=== PATIENT | male | born 1965 | race Caucasian/White ===

== ENCOUNTER 2018-05-03 10:15 | Emergency (ER) | payer BC ==
[~2018-05-03 10:15] MED LIST: Famotidine 20 MG/2 ML SDV ONE; diphenhydrAMINE 50 MG/ML SDV ONE; methylPREDNISolone Sodium Succinate 125 MG/2 ML SDV ONE
[2018-05-03] MEDS ORDERED: predniSONE 20 MG Tab PO ONE (10:16)
[2018-05-03] MEDS ORDERED: diphenhydrAMINE 50 MG/ML SDV IVPUSH ONE (10:21)
[2018-05-03] MEDS ORDERED: methylPREDNISolone Sodium Succinate 125 MG/2 ML SDV IVPUSH ONE (10:22)
[2018-05-03] MEDS ORDERED: Famotidine 20 MG/2 ML SDV IVPUSH ONE (10:23)
[2018-05-03] MEDS ORDERED: EPINEPHrine 1 MG/ML SDV IM ONE (11:04)
[2018-05-03 11:12] VITALS: BP 158/96
[2018-05-03] MEDS ORDERED: Sodium Chloride 0.9% 1,000 ML IV ONE (11:34)
--- NOTE | 2018-05-03 12:25 | EDM.PDOC ---
ED HPI GENERAL MEDICAL PROBLEM - General Chief Complaint: Allergic Reaction Stated Complaint: allergic reaction Time Seen by Provider: 05/03/18 10:15 Source of Information: Reports: Patient History Limitations: Reports: No Limitations - History of Present Illness INITIAL COMMENTS - FREE TEXT/NARRATIVE: This patient is a 52 year old male that presents to the clinic. I saw him quickly and than moved to the ER emergently. I then evaluated him once he was in the ER again. The patient reports that about 30 minutes prior to arrival he started having some sneezing, facial swelling. He reports then he arrived now his throat feels tight. The patient reports his speech is mumbled due to his tongue swelling.The patient reports his face feels red and warm. The patient report she just started several new medications this week for BP and cholesterol. Patient was started on Lisinopril. Onset: Sudden Onset Date: 05/03/18 Duration: Minutes: (30), Getting Worse Location: Reports: Face Severity: Moderate Improves with: Reports: None Worsens with: Reports: None Associated Symptoms: Denies: Confusion, Chest Pain, Cough, cough w sputum, Diaphoresis, Fever/Chills, Headaches, Loss of Appetite, Malaise, Nausea/Vomiting , Rash, Seizure, Shortness of Breath, Syncope, Weakness - Related Data Allergies Allergy/AdvReac Type Severity Reaction Status Date / Time CAIT Inhibitors Allergy Edema Verified 05/03/18 14:32 Home Meds: Home Meds ALPRAZolam [Xanax] 1 tab PO Q8H PRN 07/12/15 [History] Metoprolol Succinate 50 mg PO DAILY 05/03/18 [History] Simvastatin [Zocor] 40 mg PO DAILY 05/03/18 [History] buPROPion [Wellbutrin SR] 150 mg PO DAILY 05/03/18 [History] Past Medical History Cardiovascular History: Reports: High Cholesterol, Hypertension Psychiatric History: Reports: Anxiety Social & Family History - Tobacco Use Smoking Status *Q: Current Every Day Smoker Years of Tobacco use: 30 Packs/Tins Daily: 1 ED ROS ALLERGIC REACTION - Review of Systems Review Of Systems: See Below Constitutional: Reports: No Symptoms HEENT: Reports: Throat Swelling, Other (tongue swelling, facial swelling. lips swelling. ) Respiratory: Reports: No Symptoms. Denies: Shortness of Breath Cardiovascular: Reports: No Symptoms Endocrine: Reports: No Symptoms GI/Abdominal: Reports: No Symptoms : Reports: No Symptoms Musculoskeletal: Reports: No Symptoms Skin: Reports: No Symptoms Neurological: Reports: No Symptoms Psychiatric: Reports: No Symptoms Hematologic/Lymphatic: Reports: No Symptoms ED EXAM GENERAL NO PERIP PULSE - Physical Exam Exam: See Below Exam Limited By: No Limitations General Appearance: Alert, WD/WN, Anxious, Moderate Distress Eye Exam: Bilateral Eye: EOMI, Normal Inspection, PERRL Ears: Normal External Exam, Normal Canal, Hearing Grossly Normal, Normal TMs Nose: Normal Inspection, Normal Mucosa, No Blood Throat/Mouth: Inflammation (swelling of the face, lips upper and lower, tongue. Airway is patent at this time. ). No: Dysphagia, Perioral Cyanosis Head: Atraumatic, Normocephalic Neck: Normal Inspection, Supple, Non-Tender, Full Range of Motion Respiratory/Chest: No Respiratory Distress, Lungs Clear, Normal Breath Sounds, No Accessory Muscle Use, Chest Non-Tender Cardiovascular: Normal Peripheral Pulses, Regular Rate, Rhythm, No Edema, No Gallop, No JVD, No Murmur, No Rub GI/Abdominal: Normal Bowel Sounds, Soft, Non-Tender, No Organomegaly, No Distention, No Abnormal Bruit, No Mass, Pelvis Stable (Male) Exam: Deferred Rectal (Males) Exam: Deferred Back Exam: Normal Inspection, Full Range of Motion Extremities: Normal Inspection, Normal Range of Motion, Non-Tender, No Pedal Edema, Normal Capillary Refill Neurological: Alert, Oriented, Normal Cognition, Normal Gait, No Motor/Sensory Deficits Psychiatric: Normal Affect, Normal Mood Skin Exam: Warm, Dry, Intact, Normal Color, No Rash Lymphatic: No Adenopathy Course - Vital Signs Last Recorded V/S: Last Vital Signs Temp 97.2 F 05/03/18 11:05 Pulse 80 05/03/18 11:05 Resp 20 05/03/18 11:05 BP 158/96 H 05/03/18 11:05 Pulse Ox 96 05/03/18 11:05 - Orders/Labs/Meds Meds: Medications Discontinued Medications Generic Name Dose Route Start Last Admin Trade Name Freq PRN Reason Stop Dose Admin Diphenhydramine HCl Confirm 05/03/18 10:08 05/03/18 10:36 Benadryl Administered 05/03/18 10:09 Not Given Dose 50 mg .ROUTE .STK-MED ONE Diphenhydramine HCl 50 mg 05/03/18 10:21 05/03/18 10:21 Benadryl IVPUSH 05/03/18 10:22 50 mg ONETIME ONE Administration Epinephrine HCl 0.3 mg 05/03/18 11:04 05/03/18 11:04 Adrenalin IM 05/03/18 11:05 0.3 mg ONETIME ONE Administration Famotidine Confirm 05/03/18 10:08 05/03/18 10:36 Pepcid Administered 05/03/18 10:09 Not Given Dose 20 mg .ROUTE .STK-MED ONE Famotidine 20 mg 05/03/18 10:23 05/03/18 10:22 Pepcid IVPUSH 05/03/18 10:24 20 mg ONETIME ONE Administration Sodium Chloride 1,000 mls @ 500 mls/hr 05/03/18 11:34 05/03/18 11:48 Normal Saline IV 05/03/18 13:33 500 mls/hr .BOLUS ONE Administration Methylprednisolone Sodium Succinate Confirm 05/03/18 10:08 05/03/18 10:36 Solu-Medrol Administered 05/03/18 10:09 Not Given Dose 125 mg .ROUTE .STK-MED ONE Methylprednisolone Sodium Succinate 125 mg 05/03/18 10:22 05/03/18 10:23 Solu-Medrol IVPUSH 05/03/18 10:23 125 mg ONETIME ONE Administration Prednisone 3 packet 05/03/18 14:32 Take Home: Prednisone 20 Mg, 2 Tab Pack PO 05/03/18 14:33 ONETIME ONE - Re-Assessments/Exams Free Text/Narrative Re-Assessment/Exam: 05/03/18 12:27 Patient was given Benadryl, Solumedrol, Pepcid all IV. Given Epi SQ. Patient reports that he is felling better as far as the swelling has mildly imrpoved, and has stopped swelling. He reports he does not feel like his airway is closing. Patient reports is able to converse in full and complete sentences. Patient does have garbled/mumbled speech due to tong swelling. Airway is patent and intact. Lungs are clear. Will continue to monitor the patient in the ER for 4 hours post epi being given. 05/03/18 14:34 I want to send the patient home with an EPI Pen, however [facility] does not have this medication and the pharmacy locally is now closed. Educated to call 911 for allergic or airway complaints. He voices back understanding and wants to go home. The patient tongue is no longer swollen. Departure - Departure Time of Disposition: 14:21 Disposition: Home, Self-Care 01 Condition: Fair Clinical Impression: Angio-edema Qualifiers: Encounter type: initial encounter Qualified Code(s): T78.3XXA - Angioneurotic edema, initial encounter - Discharge Information *PRESCRIPTION DRUG MONITORING PROGRAM REVIEWED*: No *COPY OF PRESCRIPTION DRUG MONITORING REPORT IN PATIENT TERRENCE: No Instructions: Angioedema, [id number] Referrals: Cem Jacobson, MARGARETC [Primary Care Provider] - Forms: ED Department Discharge Additional Instructions: Followup with your primary care provider on Saturday Return to the ER for worsening of condition or any emergent concerns such as airway closing CALL 911 FOR AIRWAY PROBLEMS OR ANY OTHER CONCERNS Prednisone 20mg 1 pill twice a day for 3 days #6 no refill take home May also take Benadryl over the counter every 6 hours as needed for allergic reaction Keep in mind: Angioedema may not improve with medications being taken, but only with days time. STOP TAKING LISINOPRIL
[2018-05-03] MEDS ORDERED: Take Home: predniSONE 20 MG, 2 Tab Pack PO ONE (14:32)
== END 2018-05-03 14:40 | disposition home or self-care (01) ==
LOC: CC.ED 10:15
DX: T78.3XXA Angioneurotic edema, initial encounter (principal); I10 Essential (primary) hypertension; F41.9 Anxiety disorder, unspecified; F17.210 Nicotine dependence, cigarettes, uncomplicated; Z79.899 Other long term (current) drug therapy; Z88.8 Allergy status to other drugs, medicaments and biological substances
CPT/HCPCS: 96361; 96374; 96375; 99282; A9270; J0171; J1200; J2930; J3490; J7030

== ENCOUNTER → 2020-09-30 | Day surgery (SDC) | payer BC ==
[~2020-09-30] MED LIST changes: -Famotidine 20 MG/2 ML SDV ONE; +Midazolam 1 MG/ML 2 ML SDV ONE; +Propofol 200 MG/20 ML SDV ONE; -diphenhydrAMINE 50 MG/ML SDV ONE; +fentaNYL 100 MCG/2 ML SDV ONE; -methylPREDNISolone Sodium Succinate 125 MG/2 ML SDV ONE
[2020-09-30] MEDS: Lactated Ringers 1,000 ML IV SCH (08:50)
[2020-09-30 10:21] VITALS: BP 117/73; PULSE 58
--- NOTE | 2020-09-30 13:51 | OR ---
DATE OF OPERATION: 09/30/2020 PREOPERATIVE DIAGNOSIS: HISTORY OF POLYPS. POSTOPERATIVE DIAGNOSIS: HISTORY OF POLYPS. SURGEON: Jeramie Rodrigues MD PROCEDURE: FULL-LENGTH COLONOSCOPY WITH FORCEPS POLYP REMOVAL X3. ANESTHESIA: MAC. COMPLICATIONS: None. SPECIMEN: Three small sessile polyps, rectosigmoid junction, likely hyperplastic. FINDINGS: 1. Full-length colonoscopy. 2. Moderate sigmoid diverticulosis. 3. Three small polyps, rectosigmoid junction, all likely hyperplastic. RECOMMENDATIONS: Followup colonoscopy in 5 years. INDICATIONS: The patient has prior colonoscopy with polyps removed. He is due for a routine followup. DESCRIPTION OF PROCEDURE: The patient was prepped and draped, placed in the left lateral decubitus position. A lubricated Olympus colonoscope was inserted and easily advanced to the cecum. Direct visualization of the ileocecal valve and appendiceal orifice was accomplished. The bowel prep was adequate. There was scattered stool throughout the colon, most could be suctioned, some not. Certainly, there were areas where smaller polyps may have been missed. Upon withdrawal, the cecum, ascending and transverse colons were completely benign. The patient had scattered diverticular disease throughout most of the left colon. This was more significant as expected in the sigmoid and rectosigmoid region, mild to moderate in severity. In the rectosigmoid junction, the patient had 3 small flat sessile polyps appearing to be hyperplastic by visualization, all removed with a forceps without any problem. The rectal vault was benign. Retroflexion showed some perianal hemorrhoid disease, otherwise benign. Air was then suctioned. The scope was removed without complication. RICHARD/CHIKI /[id number]
== END ==
LOC: CC.SDS 08:17
PROVIDERS: ATTEND Family Medicine
DX: Z12.11 Encounter for screening for malignant neoplasm of colon (principal); K63.5 Polyp of colon; K62.1 Rectal polyp; K57.30 Diverticulosis of large intestine without perforation or abscess without bleeding; K64.8 Other hemorrhoids; Z86.010 Personal history of colon polyps; K63.89 Other specified diseases of intestine; F17.210 Nicotine dependence, cigarettes, uncomplicated; J44.9 Chronic obstructive pulmonary disease, unspecified; I25.10 Atherosclerotic heart disease of native coronary artery without angina pectoris; I10 Essential (primary) hypertension; E78.5 Hyperlipidemia, unspecified; Z88.8 Allergy status to other drugs, medicaments and biological substances; Z79.82 Long term (current) use of aspirin; Z79.899 Other long term (current) drug therapy; Z95.1 Presence of aortocoronary bypass graft
CPT/HCPCS: 45380; J7120; 00812; J2250; J2704; J3010

== ENCOUNTER 2024-01-08 20:55 | Observation (INO) | payer BC ==
[2024-01-08] MEDS ORDERED: Acetaminophen 325 MG Tab PO PRN (23:21)
[2024-01-08] MEDS ORDERED: Haloperidol Lactate 5 MG/ML SDV IM PRN (23:21)
[2024-01-08] MEDS ORDERED: Ondansetron 4 MG Tab.DIS PO PRN (23:21)
[2024-01-09] MEDS ORDERED: ALPRAZolam ODT 0.25 MG Tab PO PRN (00:06)
[2024-01-09] MEDS: Metoprolol Tartrate 50 MG Tab PO SCH (00:11)
[2024-01-09] MEDS: Nicotine 21 MG/24 Hr Patch TRDERM SCH (00:20)
[2024-01-09] MEDS: Folic Acid 1 MG, Multivitamins 1 TAB, Thiamine 100 MG, Magnesium Oxide 400 MG PO SCH (00:22)
[2024-01-09] MEDS: Acetaminophen/HYDROcodone 325-5 MG Tab PO PRN (03:42)
[2024-01-09] MEDS: Acetaminophen/HYDROcodone 325-5 MG Tab PO ONE (06:47)
[2024-01-09] MEDS: Acetaminophen/HYDROcodone 325-5 MG Tab ONE (06:55)
[2024-01-09] MEDS: atorvaSTATin 20 MG Tab PO SCH (07:53)
[2024-01-09] MEDS: ALPRAZolam 0.25 MG Tab PO PRN (08:25)
[2024-01-09] MEDS: LORazepam 2 MG/ML SDV IM PRN (09:33)
[2024-01-09 10:38] LABS: BASOPHILS ABSOLUTE AUTO 0.02 10^3/uL (0.00-0.50); BASOPHILS PERCENT AUTO 0.3 % (0-1); EOSINOPHILS ABSOLUTE AUTO 0.12 10^3/uL (0.00-1.50); EOSINOPHILS PERCENT AUTO 1.5 % (0-6); HEMOGLOBIN 16.1 g/dL (14.0-18.0); IMMATURE GRAN ABSOLUTE AUTO 0.05 10^3/uL (0.00-0.49); IMMATURE GRAN PERCENT AUTO 0.6 % (0.0-4.9); LYMPHOCYTES ABSOLUTE AUTO 1.55 10^3/uL (0.60-5.00); LYMPHOCYTES PERCENT AUTO 19.5 % (24-44); MEAN CORPUSCULAR HEMOGLOBIN 30.8 pg (27.0-32.0); MEAN CORPUSCULAR HGB CONC 33.5 g/dL (32.0-36.0); MEAN CORPUSCULAR VOLUME 91.8 fL (83.0-97.0); MONOCYTES ABSOLUTE AUTO 0.55 10^3/uL (0.00-1.50); MONOCYTES PERCENT AUTO 6.9 % (0-10); NEUTROPHILS ABSOLUTE AUTO 5.65 x10^3/uL (1.80-8.00); NEUTROPHILS PERCENT AUTO 71.2 % (41-71); PLATELET COUNT,PLT 272 10^3/uL (150-400); RED BLOOD CELL COUNT 5.23 x10^6/uL (4.50-6.00); WHITE BLOOD CELL COUNT,WBC 7.9 10^3/uL (4.0-11.0)
[2024-01-09 10:50] LABS: BILIRUBIN TOTAL 1.2 mg/dL (0.0-1.0); C-REACTIVE PROTEIN 0.62 mg/dL (<=0.50); CALCIUM 9.7 mg/dL (8.4-10.1); CREATININE 1.1 mg/dL (0.7-1.3); EST CRCL DRUG DOSING (CG) 76.06 mL/min; MAGNESIUM 1.5 mg/dL (1.8-2.4); POTASSIUM,K 4.3 mEq/L (3.5-5.0); PROTEIN TOTAL,TP 7.7 g/dL (6.4-8.2)
[2024-01-09 12:20] VITALS: BP 145/94; PULSE 103
== END 2024-01-09 09:30 | disposition home or self-care (01) ==
LOC: CC.ED 20:55 → CC.MS 21:58 → UNDOADMOB 22:48
PROVIDERS: ADMIT Nurse Practitioner; ATTEND Nurse Practitioner
DX: Z71.1 Person with feared health complaint in whom no diagnosis is made (principal); M54.50 Low back pain, unspecified; E78.00 Pure hypercholesterolemia, unspecified; I10 Essential (primary) hypertension; F41.9 Anxiety disorder, unspecified; Z79.82 Long term (current) use of aspirin; Z79.899 Other long term (current) drug therapy; Z88.8 Allergy status to other drugs, medicaments and biological substances
CPT/HCPCS: 36415; 80053; 83605; 83735; 85025; 86140; 87040; 99285; A9270-GY; J2060